=== PATIENT | male | born 1995 | race African-American/Black ===

== ENCOUNTER 2017-08-23 19:57 | Emergency (ER) | payer SELFPAY ==
[2017-08-23] MEDS: IBUPROFEN 800 MG TABLET. PO (21:00)
== END 2017-08-23 20:55 | disposition home or self-care (01) ==
LOC: ER 19:57
DX: R05 Cough (principal); R09.81 Nasal congestion
CPT/HCPCS: 71046; 99284

== ENCOUNTER 2017-09-07 19:31 | Emergency (ER) | payer SELFPAY | END 2017-09-07 20:34 | disposition home or self-care (01) | LOC: ER 19:31 | DX: Z02.1 Encounter for pre-employment examination (principal) | CPT/HCPCS: 99281 ==

== ENCOUNTER 2017-11-30 14:45 | Emergency (ER) | payer SELFPAY ==
[~2017-11-30] VITALS: Ht 185.4 cm; Wt 117.9 kg
[~2017-11-30 14:45] MED LIST: BENZ100C PO; PRED20TA PO
[2017-11-30 15:39] VITALS: BP 108/57
--- NOTE | 2017-11-30 16:39 | RAD ---
EXAM: Head CT without contrast. HISTORY: Left-sided numbness. Headaches. TECHNIQUE: Computed tomographic images of the head were obtained without contrast. *One or more of the following individualized dose reduction techniques were utilized for this examination: 1. Automated exposure control. 2. Adjustment of the mA and/or kV according to patient size. 3. Use of iterative reconstruction technique. COMPARISON: None. FINDINGS: There is no acute or subacute extra-axial or intraparenchymal hemorrhage. There is no mass effect or midline shift. There is no hydrocephalus. The andres-white matter differentiation pattern is intact. The visualized portions of the orbits, paranasal sinuses and mastoid air cells are unremarkable. No suspicious calvarial lesion is seen. IMPRESSION: No acute intracranial findings. Electronically signed by: Bita Bernstein MD (11/30/2017 4:36 PM) [place] [id number]
--- NOTE | 2017-11-30 16:52 | PHYS DOC ---
Past Medical History Past Medical History: No Pertinent History Past Surgical History: No Surgical History Alcohol Use: None Drug Use: None Adult General Chief Complaint Chief Complaint: MULTIPLE COMPLAINTS [facility] HPI Patient is a 22 year old male who presents with left-sided the body numbness, pulsating headache, left side pain 2 days. Patient denies any visual changes. Patient states that he does stop smoking last week and so has been coughing a lot. Patient denies any current rash, fever, neck pain, chest pain, shortness of air. Patient states that earlier this week he was lifting a heavy that'll table that fell onto his left neck. Patient states that his left neck/shoulder area feels like there is a pinched nerve. Review of Systems Review of Systems Constitutional: Denies fever or chills [] Eyes: Denies change in visual acuity, redness, or eye pain [] HENT: Denies nasal congestion or sore throat [] Respiratory: Denies cough or shortness of breath [] Cardiovascular: No additional information not addressed in HPI [] GI: Denies abdominal pain, nausea, vomiting, bloody stools or diarrhea [] : Denies dysuria or hematuria [] Musculoskeletal: Denies back pain or joint pain [] Integument: Denies rash or skin lesions [] Neurologic: Denies headache, focal weakness or sensory changes [] Endocrine: Denies polyuria or polydipsia [] All other systems were reviewed and found to be within normal limits, except as documented in this note. Allergies Allergies Allergies Coded Allergies Type Severity Reaction Last Updated Verified No Known Drug Allergies 08/23/17 No Physical Exam Physical Exam Constitutional: Well developed, well nourished, no acute distress, non-toxic appearance. [] HENT: Normocephalic, atraumatic, bilateral external ears normal, oropharynx moist, no oral exudates, nose normal. [] Eyes: PERRLA, EOMI, conjunctiva normal, no discharge. [] Neck: Normal range of motion, no tenderness, supple, no stridor. [] Cardiovascular:Heart rate regular rhythm, no murmur [] Lungs & Thorax: Bilateral breath sounds clear to auscultation [] Abdomen: Bowel sounds normal, soft, no tenderness, no masses, no pulsatile masses. [] Skin: Warm, dry, no erythema, no rash. [] Back: No tenderness, no CVA tenderness. [] Extremities: No tenderness, no cyanosis, no clubbing, ROM intact, no edema. [] Neurologic: Alert and oriented X 3, normal motor function, normal sensory function, no focal deficits noted. [] Psychologic: Affect normal, judgement normal, mood normal. [] Current Patient Data Vital Signs Vital Signs Date Time Temp Pulse Resp B/P (MAP) Pulse Ox O2 Delivery O2 Flow Rate FiO2 11/30/17 15:39 98.1 66 20 108/57 (74) 99 Room Air 98.1 EKG EKG [] Radiology/Procedures Radiology/Procedures CT HEAD AND C SPINE Impressions: [facility] [address] [place], [place] [id number] IMAGING REPORT Signed PATIENT: YUNIOR PEDRAZA ACCOUNT: [id number] : 1995 LOCATION: ER AGE: 22 SEX: M EXAM STATUS: REG ER ORD. PHYSICIAN: STARR LANGE APRN REASON: LEFT SIDED HEADACHE AND NUMBNESS PROCEDURE: CT HEAD AND CERVICAL SPINE WO EXAM: Head CT without contrast. HISTORY: Left-sided numbness. Headaches. TECHNIQUE: Computed tomographic images of the head were obtained without contrast. *One or more of the following individualized dose reduction techniques were utilized for this examination: 1. Automated exposure control. 2. Adjustment of the mA and/or kV according to patient size. 3. Use of iterative reconstruction technique. COMPARISON: None. FINDINGS: There is no acute or subacute extra-axial or intraparenchymal hemorrhage. There is no mass effect or midline shift. There is no hydrocephalus. The andres-white matter differentiation pattern is intact. The visualized portions of the orbits, paranasal sinuses and mastoid air cells are unremarkable. No suspicious calvarial lesion is seen. IMPRESSION: No acute intracranial findings. Electronically signed by: Bita Echavarria MD (11/30/2017 4:36 PM) [facility] DICTATED and SIGNED BY: BITA ECHAVARRIA MD DATE: 11/30/17 4054 Course & Med Decision Making Course & Med Decision Making Patient is a 22 year old male who presents with left-sided the body numbness, pulsating headache, left side pain 2 days. Patient denies any visual changes. Patient states that he does stop smoking last week and so has been coughing a lot. Patient denies any current rash, fever, neck pain, chest pain, shortness of air. Patient states that earlier this week he was lifting a heavy that'll table that fell onto his left neck. Patient states that his left neck/shoulder area feels like there is a pinched nerve. Patient is neurologically intact. Patient has equal strength in all extremities. Patient ambulates without any issue. Patient has steady gait. PERRLA. Patient has no extremity edema. His lungs are clear in all lung lobes. Patient's heart rate is regular with out murmur. Patient's abdomen is soft and nontender. Patient denies any bowel or bladder issues. The lateral radial and pedal pulses are present and strong. CT of head and C-spine show no acute findings. Patient to follow-up with his primary care provider. I did consult with Dr. Ivory on this patient. Patient is stable and is discharged home. Dragon Disclaimer Dragon Disclaimer This electronic medical record was generated, in whole or in part, using a voice recognition dictation system. Departure Departure Impression: Primary Impression: Paresthesia Disposition: 01 HOME, SELF-CARE Condition: STABLE Referrals: NO PCP (PCP) Patient Instructions: Paresthesia Additional Instructions: FOLLOW UP WITH PCP. RETURN IF HAVING WEAKNESS IN EXTREMITIES, VISION CHANGES, OR INTENSE HEADACHE STARR LANGE APRN Nov 30, 2017 16:52
== END 2017-11-30 17:15 | disposition home or self-care (01) ==
LOC: ER 14:45
DX: R20.2 Paresthesia of skin (principal); R05 Cough; R51 Headache; Z87.891 Personal history of nicotine dependence
CPT/HCPCS: 70450; 72125; 99284

== ENCOUNTER 2018-11-15 17:20 | Emergency (ER) | payer BC ==
[~2018-11-15] VITALS: Ht 185.4 cm; Wt 108.9 kg
[2018-11-15] MEDS ORDERED: CONTRAST GIVEN. MC PRN (18:45)
[2018-11-15] MEDS ORDERED: IOHEXOL 300 MG/ML 100ML VIAL. IV ONE (18:45)
[2018-11-15 19:40] LABS: BASO # 0.1 x10^3/uL (0.0-0.2); BASO % 1 % (0-3); EOS # 0.1 x10^3/uL (0.0-0.7); EOS % 1 % (0-3); HEMATOCRIT 39.8 % (39.0-53.0); HEMOGLOBIN 13.3 g/dL (13.0-17.5); LYMPH # 2.2 x10^3/uL (1.0-4.8); LYMPH % 36 % (24-48); MEAN CORPUSCULAR HEMOGLOBIN 28 pg (25-35); MEAN CORPUSCULAR HGB CONC 34 g/dL (31-37); MEAN CORPUSCULAR VOLUME 83 fL (79-100); MONO # 0.6 x10^3/uL (0.0-1.1); MONO % 10 % (0-9); NEUT # 3.2 x10^3/uL (1.8-7.7); NEUT % 52 % (31-73); PLATELET COUNT 256 x10^3/uL (140-400); RED BLOOD COUNT 4.78 x10^6/uL (4.30-5.70); RED CELL DISTRIBUTION WIDTH 14.3 % (11.5-14.5); WHITE BLOOD COUNT 6.2 x10^3/uL (4.0-11.0)
[2018-11-15 19:48] LABS: CALCIUM 8.7 mg/dL (8.5-10.1); GFR 114.1; POTASSIUM 3.9 mmol/L (3.5-5.1)
--- NOTE | 2018-11-15 21:03 | RAD ---
Exam: CT soft tissue neck with contrast INDICATION: Sore throat TECHNIQUE: Sequential axial images through the neck obtained following the administration of 70 mL of Omni 300 IV contrast. Sagittal and coronal reformatted images were reconstructed from the axial data and reviewed. Comparisons: None FINDINGS: Visualized intracranial structures are unremarkable. Visualized portions of the paranasal sinuses and mastoid air cells are well-pneumatized. Cervical vasculature is patent. Nasopharynx, oropharynx, hypopharynx and larynx are unremarkable. Thyroid and salivary glands are within normal limits. No enlarged cervical lymph nodes are identified. There is a prominent right level 2A lymph node adjacent to the marker. Lung apices are clear. Visualized osseous structures are unremarkable. IMPRESSION: No cervical mass identified. Prominent but not enlarged right level 2A lymph node noted adjacent to the BB marker at the clinically palpable abnormality. Exposure: One or more of the following in the visualized dose reduction techniques were utilized for this examination: 1. Automated exposure control 2. Adjustment of the MA and/or KV according to patient size 3. Use of iterative of reconstructive technique Electronically signed by: Ramona Sorenson MD (11/15/2018 9:01 PM) [id number]
--- NOTE | 2018-11-15 21:28 | PHYS DOC ---
Past Medical History Past Medical History: No Pertinent History Past Surgical History: No Surgical History Alcohol Use: Rarely Drug Use: None Adult General Chief Complaint Chief Complaint: SORE THROAT HPI HPI Patient is a 23 year old male with history of smoking who presents to the ED today complaining of a swollen area on his right cervical spine that he noted 2 months ago. Is also complaining of sore throat and raspy voice. Patient's also complaining of a cough intermittently for couple weeks. Denies any fever. Denies any difficulty swallowing. He states once in a while his voice is raspy Review of Systems Review of Systems Constitutional: Denies any fever Eyes: Denies change in visual acuity, redness, or eye pain [] HENT: Reports a swollen area on the right cervical spine, reports raspy voice. Denies nasal congestion Respiratory: Reports cough, denies shortness of breath [] Cardiovascular: No additional information not addressed in HPI [] GI: Denies abdominal pain, nausea, vomiting, bloody stools or diarrhea [] : Denies dysuria or hematuria [] Musculoskeletal: Denies back pain or joint pain [] Integument: Denies rash or skin lesions [] Neurologic: Denies headache, focal weakness or sensory changes [] All other systems were reviewed and found to be within normal limits, except as documented in this note. Current Medications Current Medications Current Medications Medications (Trade) Dose Ordered Sig/Patience Start Time Stop Time Status Last Admin Dose Admin Info (CONTRAST GIVEN -- Rx MONITORING) 1 each PRN DAILY PRN 11/15/18 18:45 11/17/18 18:44 Iohexol (Omnipaque 300 Mg/ml) 70 ml 1X ONCE 11/15/18 18:45 11/15/18 18:46 DC 11/15/18 20:13 70 ML Allergies Allergies Allergies Coded Allergies Type Severity Reaction Last Updated Verified No Known Drug Allergies 08/23/17 No Physical Exam Physical Exam Constitutional: Well developed, well nourished, no acute distress, non-toxic appearance. [] HENT: Normocephalic, atraumatic, bilateral external ears normal, oropharynx moist, no oral exudates, nose normal. [] +2 right anterior cervical lympha node Eyes: PERRLA, EOMI, conjunctiva normal, no discharge. [] Neck: Normal range of motion, no tenderness, supple, no stridor. [] Cardiovascular:Heart rate regular rhythm, no murmur [] Lungs & Thorax: Bilateral breath sounds clear to auscultation [] Abdomen: Bowel sounds normal, soft, no tenderness, no masses, no pulsatile masses. [] Skin: Warm, dry, no erythema, no rash. [] Back: No tenderness, no CVA tenderness. [] Extremities: No tenderness, no cyanosis, no clubbing, ROM intact, no edema. [] Neurologic: Alert and oriented X 3, normal motor function, normal sensory function, no focal deficits noted. [] Psychologic: Affect normal, judgement normal, mood normal. [] Current Patient Data Vital Signs Vital Signs Date Time Temp Pulse Resp B/P (MAP) Pulse Ox O2 Delivery O2 Flow Rate FiO2 11/15/18 18:14 98.4 59 18 135/70 (91) 99 Room Air 98.4 Lab Values Laboratory Tests Test 11/15/18 19:28 White Blood Count 6.2 x10^3/uL (4.0-11.0) Red Blood Count 4.78 x10^6/uL (4.30-5.70) Hemoglobin 13.3 g/dL (13.0-17.5) Hematocrit 39.8 % (39.0-53.0) Mean Corpuscular Volume 83 fL (79-100) Mean Corpuscular Hemoglobin 28 pg (25-35) Mean Corpuscular Hemoglobin Concent 34 g/dL (31-37) Red Cell Distribution Width 14.3 % (11.5-14.5) Platelet Count 256 x10^3/uL (140-400) Neutrophils (%) (Auto) 52 % (31-73) Lymphocytes (%) (Auto) 36 % (24-48) Monocytes (%) (Auto) 10 % (0-9) H Eosinophils (%) (Auto) 1 % (0-3) Basophils (%) (Auto) 1 % (0-3) Neutrophils # (Auto) 3.2 x10^3/uL (1.8-7.7) Lymphocytes # (Auto) 2.2 x10^3/uL (1.0-4.8) Monocytes # (Auto) 0.6 x10^3/uL (0.0-1.1) Eosinophils # (Auto) 0.1 x10^3/uL (0.0-0.7) Basophils # (Auto) 0.1 x10^3/uL (0.0-0.2) Sodium Level 143 mmol/L (136-145) Potassium Level 3.9 mmol/L (3.5-5.1) Chloride Level 105 mmol/L (98-107) Carbon Dioxide Level 31 mmol/L (21-32) Anion Gap 7 (6-14) Blood Urea Nitrogen 9 mg/dL (8-26) Creatinine 1.0 mg/dL (0.7-1.3) Estimated GFR (Cockcroft-Gault) 114.1 Glucose Level 86 mg/dL (70-99) Calcium Level 8.7 mg/dL (8.5-10.1) Laboratory Tests 11/15/18 19:28 Laboratory Tests 11/15/18 19:28 EKG EKG [] Radiology/Procedures Radiology/Procedures []PROCEDURE: CT SOFT TISSUE NECK W/CONTRAST Exam: CT soft tissue neck with contrast INDICATION: Sore throat TECHNIQUE: Sequential axial images through the neck obtained following the administration of 70 mL of Omni 300 IV contrast. Sagittal and coronal reformatted images were reconstructed from the axial data and reviewed. Comparisons: None FINDINGS: Visualized intracranial structures are unremarkable. Visualized portions of the paranasal sinuses and mastoid air cells are well-pneumatized. Cervical vasculature is patent. Nasopharynx, oropharynx, hypopharynx and larynx are unremarkable. Thyroid and salivary glands are within normal limits. No enlarged cervical lymph nodes are identified. There is a prominent right level 2A lymph node adjacent to the marker. Lung apices are clear. Visualized osseous structures are unremarkable. IMPRESSION: No cervical mass identified. Prominent but not enlarged right level 2A lymph node noted adjacent to the BB marker at the clinically palpable abnormality. Exposure: One or more of the following in the visualized dose reduction techniques were utilized for this examination: 1. Automated exposure control 2. Adjustment of the MA and/or KV according to patient size 3. Use of iterative of reconstructive technique Electronically signed by: Ramona Walker MD (11/15/2018 9:01 PM) [facility] DICTATED and SIGNED BY: RAMONA WALKER MD DATE: 11/15/182100 Course & Med Decision Making Course & Med Decision Making Pertinent Labs and Imaging studies reviewed. (See chart for details) This is a 23-year-old male patient with history of smoking presenting to the ED today complaining of a palpable mass on the right cervical spine, call for couple days, and raspy voice. Chest x-rays negative for any acute findings. Labs are negative for any acute findings. Physical exam noted for palpable lymph node on the right anterior cervical spine. CT of the neck soft tissue-no cervical mass identified. Prominent but not enlarged right level 2A lymph node noted adjacent to the BB marker at the clinically palpable abnormality. Patient was provided ENT for follow-up as an outpatient. Encouraged to consider smoking cessation. Dragon Disclaimer Dragon Disclaimer This electronic medical record was generated, in whole or in part, using a voice recognition dictation system. Departure Departure Impression: Primary Impression: Lymphadenopathy, cervical Additional Impressions: Smoking addiction Cough Disposition: 01 HOME, SELF-CARE Condition: STABLE Referrals: NO PCP (PCP) EMERY GOODE MD Follow up in one week Patient Instructions: Cough, Adult, [id number], Smoking Cessation Additional Instructions: You were evaluated in the emergency room and noted to have an enlarged lymph node in your neck. Please consider smoking cessation. Follow-up with the pro vided ENT. You can take [id number] cough remedies as needed. Problem Qualifiers ELADIO MO APRN Nov 15, 2018 21:28
[2018-11-15 21:33] VITALS: BP 138/71
--- NOTE | 2018-11-15 23:31 | RAD ---
Exam: Chest 2 views INDICATION: Cough TECHNIQUE: Frontal and lateral views of the chest Comparisons: 08/23/2017 FINDINGS: The cardiomediastinal silhouette and pulmonary vessels are within normal limits. The lung and pleural spaces are clear. IMPRESSION: No acute cardiopulmonary process. Electronically signed by: Ramona Sorenson MD (11/15/2018 11:27 PM) [facility]
== END 2018-11-15 21:34 | disposition home or self-care (01) ==
LOC: ER 17:20
DX: R59.0 Localized enlarged lymph nodes (principal); J02.9 Acute pharyngitis, unspecified; F17.200 Nicotine dependence, unspecified, uncomplicated
CPT/HCPCS: 36415; 70491; 71046; 80048; 85025; 87070; 87880; 99285; Q9967

== ENCOUNTER 2018-12-16 14:04 | Emergency (ER) | payer BC ==
[~2018-12-16] VITALS: Ht 185.4 cm; Wt 108.9 kg
[2018-12-16 14:20] VITALS: BP 136/78
--- NOTE | 2018-12-16 14:30 | PHYS DOC ---
Past Medical History Past Medical History: No Pertinent History Past Surgical History: No Surgical History Alcohol Use: Rarely Drug Use: None Adult General Chief Complaint Chief Complaint: THUMB Injury HPI HPI 23-year-old RHD male presenting the emergency department today with right thumb pain after falling yesterday injuring it. He has had swelling this morning. He describes normal sensation and movement of the thumb. Otherwise he denies wrist pain or elbow pain proximally. Review of systems is negative for elbow or shoulder pain. Negative for head injury. All other review of systems is negative. ED course: 23-year-old male with right thumb injury. X-rays obtained and neg. concern for possible gamekeepers thumb given laxity of abduction and point tenderness to palpation. will refer to hand surgeon and place thumb spica. f/u with hand surgery in 3-4 days. Allergies Allergies Allergies Coded Allergies Type Severity Reaction Last Updated Verified No Known Drug Allergies 08/23/17 No Physical Exam Physical Exam Constitutional: Well developed, well nourished, no acute distress, non-toxic appearance. [] HENT: Normocephalic, atraumatic, bilateral external ears normal, oropharynx moist, no oral exudates, nose normal. [] Eyes: PERRLA, EOMI, conjunctiva normal, no discharge. [] Neck: Normal range of motion, no tenderness, supple, no stridor. [] Cardiovascular:Heart rate regular rhythm, no murmur [] Lungs & Thorax: Bilateral breath sounds clear to auscultation [] Abdomen: Bowel sounds normal, soft, no tenderness, no masses, no pulsatile masses. [] Skin: Warm, dry, no erythema, no rash. [] Back: No tenderness, no CVA tenderness. [] Extremities: The patient's right upper extremity has tenderness to palpation along the proximal phalanx and first metacarpal. There is swelling present. Mild laxity of the thumb in abduction. No laceration or ecchymosis. Palpable pulse in the radial pulse. 2 second cap refill. Pain with passive range of motion at the MCP joint. Nontender wrist. Nontender snuff box. Nontender elbow with [place] emotionally elbow. No other injuries identified. All other extremities are Norvasc intact with 2 second cap refill. Neurologic: Alert and oriented X 3, normal motor function, normal sensory function, no focal deficits noted. [] Psychologic: Affect normal, judgement normal, mood normal. [] Current Patient Data Vital Signs Vital Signs Date Time Temp Pulse Resp B/P (MAP) Pulse Ox O2 Delivery O2 Flow Rate FiO2 12/16/18 14:20 98.0 73 14 136/78 (97) 97 Room Air 98.0 EKG EKG [] Radiology/Procedures Radiology/Procedures [] Course & Med Decision Making Course & Med Decision Making Pertinent Labs and Imaging studies reviewed. (See chart for details) [] Dragon Disclaimer Dragon Disclaimer This electronic medical record was generated, in whole or in part, using a voice recognition dictation system. Departure Departure Impression: Primary Impression: Injury of right hand Disposition: HOME, SELF-CARE Condition: STABLE Referrals: NO PCP (PCP) Patient Instructions: Hand Injuries Additional Instructions: Thank you for allowing us to participate in your care today. Return to the emergency department you have any new or worsening symptoms, or if you are concerned for any reason. Return to emergency department if you have any new or concerning symptoms including but not limited to fever, chills, nausea, vomiting, intractable pain, any new rashes, chest pain, shortness of air, uncontrolled bleeding, difficulty breathing, and/or vision loss. Follow up with [facility] hand surgery in 3-5 days and out patient MRI of the hand in 3- 5 days. Call your Primary Doctor tomorrow and inform them of your visit today. If you do not have a primary care provider we are happy to provide you with a list of our primary care providers contact information. This condition should be evaluated by your primary care physician and any recommended consulting services for continued management within 2 days after discharge. If at any time, you are having difficulty getting into your primary care doctor or a specialist, return to the emergency department. KAJAL EPPS MD Dec 16, 2018 14:30
--- NOTE | 2018-12-16 14:59 | RAD ---
Examination: 3 views of the right hand HISTORY: History of right hand pain performed COMPARISON: None available FINDINGS: The alignment of the metacarpophalangeal, interphalangeal joints grossly appears unremarkable. There is no obvious acute fracture identified. IMPRESSION: No acute osseous findings. Electronically signed by: Hussain Wesley MD (12/16/2018 2:56 PM) [id number]
== END 2018-12-16 15:25 | disposition home or self-care (01) ==
LOC: ER 14:04
DX: S69.91XA Unspecified injury of right wrist, hand and finger(s), initial encounter (principal); W18.39XA Other fall on same level, initial encounter; Y93.89 Activity, other specified; Y92.89 Other specified places as the place of occurrence of the external cause; Y99.8 Other external cause status
CPT/HCPCS: 29125; 73130; 99284

== ENCOUNTER 2019-03-07 16:35 | Emergency (ER) | payer BC ==
[~2019-03-07] VITALS: Ht 185.4 cm; Wt 108.9 kg
[2019-03-07 16:52] VITALS: BP 143/85
[2019-03-07 17:55] LABS: INFLUENZA A PATIENT NEGATIVE (NEGATIVE); INFLUENZA B PATIENT NEGATIVE (NEGATIVE)
[2019-03-07] MEDS ORDERED: PRED50TA PO (18:07)
[2019-03-07] MEDS ORDERED: ALBU2.5V8 IH (18:07)
[2019-03-07] MEDS ORDERED: BENZ100C PO (18:07)
--- NOTE | 2019-03-07 18:07 | PHYS DOC ---
Past Medical History Past Medical History: No Pertinent History (ELADIO MO APRN) Past Surgical History: No Surgical History (ELADIO MO APRN) Additional Information: pt reports smoking 1 black and mild per day Alcohol Use: None Drug Use: None (ELADIO MO APRN) Attending Signature I have participated in the care of this patient and I have reviewed and agree with all pertinent clinical information above including history, exam, and recommendations. (RODRIGUEZ THOMASON MD) Adult General Chief Complaint Chief Complaint: Congestion HPI HPI Patient is a 24 year old male patient presenting to the ED today with subjecti ve fevers, body aches, chills, sore throat, cough, nasal congestion, symptoms began 5 days ago. (ELADIO MO APRN) Review of Systems Review of Systems Constitutional: Reports fevers Eyes: Denies change in visual acuity, redness, or eye pain [] HENT: Reports sore throat and sore throat [] Respiratory: Reports cough, denies shortness of breath [] Cardiovascular: No additional information not addressed in HPI [] GI: Denies abdominal pain, nausea, vomiting, bloody stools or diarrhea [] : Denies dysuria or hematuria [] Musculoskeletal: Denies back pain or joint pain [] Integument: Denies rash or skin lesions [] Neurologic: Denies headache, focal weakness or sensory changes [] All other systems were reviewed and found to be within normal limits, except as documented in this note. (ELADIO MO APRN) Allergies Allergies Allergies Coded Allergies Type Severity Reaction Last Updated Verified No Known Drug Allergies 08/23/17 No (RODRIGUEZ THOMASON MD) Physical Exam Physical Exam Constitutional: Well developed, well nourished, no acute distress, non-toxic appearance. [] HENT: Normocephalic, atraumatic, bilateral external ears normal, oropharynx moist, no oral exudates, nose normal. [] Eyes: PERRLA, EOMI, conjunctiva normal, no discharge. [] Neck: Normal range of motion, no tenderness, supple, no stridor. [] Cardiovascular:Heart rate regular rhythm, no murmur [] Lungs & Thorax: Bilateral breath sounds clear to auscultation [] Abdomen: Bowel sounds normal, soft, no tenderness, no masses, no pulsatile ma sses. [] Skin: Warm, dry, no erythema, no rash. [] Back: No tenderness, no CVA tenderness. [] Extremities: No tenderness, no cyanosis, no clubbing, ROM intact, no edema. [] Neurologic: Alert and oriented X 3, normal motor function, normal sensory function, no focal deficits noted. [] Psychologic: Affect normal, judgement normal, mood normal. [] (ELADIO MO APRN) Current Patient Data Vital Signs Vital Signs Date Time Temp Pulse Resp B/P (MAP) Pulse Ox O2 Delivery O2 Flow Rate FiO2 03/07/19 16:52 97.9 78 18 143/85 (104) 98 Room Air 97.9 (RODRIGUEZ THOMASON MD) Lab Values Laboratory Tests Test 03/07/19 17:10 Influenza Type A Antigen Negative (NEGATIVE) Influenza Type B Antigen Negative (NEGATIVE) (RODRIGUEZ THOMASON MD) EKG EKG [] (ELADIO MO APRN) Radiology/Procedures Radiology/Procedures [] (ELADIO MO APRN) Course & Med Decision Making Course & Med Decision Making Pertinent Labs and Imaging studies reviewed. (See chart for details) This is a 24-year-old male patient presenting to the ED today with flulike symptoms including fever and body aches chills nasal congestion sore throat for 5 days. Negative influenza A or B. Patient is afebrile. Supportive care measures recommended. Discharged to home. (ELADIO MO APRN) Dragon Disclaimer Dragon Disclaimer This electronic medical record was generated, in whole or in part, using a voice recognition dictation system. (ELADIO MO APRN) Departure Departure Impression: Primary Impression: Cough Additional Impressions: URI (upper respiratory infection) Pharyngitis, acute Disposition: HOME, SELF-CARE Condition: STABLE Referrals: NO PCP (PCP) follow up with your doctor next week Patient Instructions: Viral Infections, [id number] Additional Instructions: You were evaluated in the emergency room with symptoms suspicious of a viral illness. We wrote you medications. Take them as prescribed. Push fluids, rest, maintain good and imaging, follow-up with your doctor in the course of next week. Scripts Benzonatate (TESSALON PERLE) 100 Mg Capsule 1 CAP PO TID, #30 CAP Prov: ELADIO MO APRN 03/07/19 Prednisone (PREDNISONE) 50 Mg Tablet 1 TAB PO DAILY, #5 TAB Prov: VANESSAELADIO HELTON LIQUEFIER 03/07/19 Albuterol Sulfate (Proair Hfa) 8.5 Gm Hfa.aer.ad 2 PUFF IH PRN Q4-6HRS PRN for wheezing for 21 Days, #1 INHALER 0 Refills Prov: ELADIO MO JOHN 03/07/19 Problem Qualifiers Additional Impressions: URI (upper respiratory infection) URI type: unspecified URI Qualified Codes: J06.9 - Acute upper respiratory infection, unspecified Pharyngitis, acute Pharyngitis/tonsillitis etiology: unspecified etiology Qualified Codes: J02.9 - Acute pharyngitis, unspecified ELADIO MO JOHN Mar 07, 2019 18:07 RODRIGUEZ THOMASON MD Mar 07, 2019 18:24
== END 2019-03-07 18:15 | disposition home or self-care (01) ==
LOC: ER 16:35
DX: J06.9 Acute upper respiratory infection, unspecified (principal); J02.9 Acute pharyngitis, unspecified; R05 Cough; F17.200 Nicotine dependence, unspecified, uncomplicated
CPT/HCPCS: 87804; 99284